=== PATIENT | female | born 1990 ===

== ENCOUNTER 2021-02-14 15:24 | Inpatient (IN) | payer OTHER ==
[~2021-02-14] VITALS: Ht 162.6 cm; Wt 55.8 kg
[2021-02-14] MEDS ORDERED: PROM-163 PO (17:16)
[2021-02-14] MEDS ORDERED: LOPE2 PO (17:16)
[2021-02-14] MEDS ORDERED: TRAZ-257 PO (17:16)
[2021-02-14] MEDS ORDERED: IBUP-2759 PO (17:16)
[2021-02-14] MEDS ORDERED: CLON0.1T2 PO (17:16)
[2021-02-14 17:48] LABS: BASOPHILS % (AUTO) 0.7 % (0.0-2.0); EOSINOPHILS % (AUTO) 0.1 % (1.0-6.0); HEMATOCRIT 40.6 % (36-46); HEMOGLOBIN 13.2 g/dL (12.0-16.0); LYMPHOCYTES # (AUTO) 1.1 K/uL (1.0-4.8); LYMPHOCYTES % (AUTO) 13.6 % (22.0-44.0); MEAN CORPUSCULAR HEMOGLOBIN 29.8 pg (26.0-34.0); MEAN CORPUSCULAR HGB CONC 32.5 G/dL (31.0-37.0); MEAN CORPUSCULAR VOLUME 92 fL (80-100); MONOCYTES # (AUTO) 0.3 K/uL (0.1-1.0); MONOCYTES % (AUTO) 3.9 % (2.0-9.0); NEUTROPHILS # (AUTO) 6.4 K/uL (1.8-7.7); NEUTROPHILS % (AUTO) 81.7 % (40.0-70.0); PLATELET COUNT (AUTO) 296 K/uL (150-450); RED BLOOD CELL COUNT(AUTO) 4.43 MIL/uL (4.00-5.20); RED CELL DISTRIBUTION WIDTH 14.3 % (11.5-14.5)
[2021-02-14 18:02] LABS: ANION GAP 10 mmol/L (8-16); CALCIUM, TOTAL 8.5 mg/dL (8.8-10.5); CARBON DIOXIDE 22 mmol/L (22-29); CHLORIDE 107 mmol/L (98-107); CREATININE 0.62 mg/dL (0.60-1.30); GLOMERULAR FILTR. RATE CALC > 60 mL/min (>60); GLUCOSE,RANDOM 92 mg/dL (70-110); POTASSIUM 3.6 mmol/L (3.5-5.1); SODIUM SERUM 139 mmol/L (136-145); UREA NITROGEN, BLOOD 11 mg/dL (7-18)
[2021-02-14 18:13] LABS: ALANINE AMINOTRANSFERASE 18 U/L (12-78); ALBUMIN 3.2 g/dL (3.4-5.0); ALKALINE PHOSPHATASE 61 U/L (46-116); ASPARTATE AMINOTRANSFERASE 14 U/L (15-37); BILIRUBIN,TOTAL 0.5 mg/dL (0.1-1.0); HCG,QUANTITATIVE < 1 mIU/mL (0-6); TOTAL PROTEIN, SERUM 6.9 g/dL (6.4-8.2)
[2021-02-14 18:48] LABS: SALICYLATE 3.8 mg/dL (2.8-20.0)
[2021-02-14 18:52] LABS: COVID AG,FIA SOURCE NASOPHARYNGEAL
[2021-02-14] MEDS ORDERED: ONDANSETRON HCL 4 MG/2 ML VIAL IVP PRN (20:00)
[2021-02-14] MEDS ORDERED: ACETAMINOPHEN 325 MG TABLET PO PRN (20:00)
[2021-02-14] MEDS ORDERED: LORazepam 2 MG TABLET PO PRN (20:00)
[2021-02-14 20:47] LABS: ACETAMINOPHEN < 2 mcg/mL (10-30)
[2021-02-14] MEDS: 1: MAGNESIUM SULFATE 2 GM, MVI, ADULT NO.1 WITH VIT K 10 ML, THIAMINE 100 MG, FOLIC ACID IV SCH ×5 (21:24)
[2021-02-14 21:30] VITALS: BP 116/83
[2021-02-14] MEDS: HEPARIN SODIUM,PORCINE 5,000 UNITS/ML VIAL SQ SCH (23:41)
[2021-02-15 04:00] VITALS: BP 136/70
[2021-02-15 04:22] LABS: AMPHET/METH SCREEN,URINE POSITIVE (NEGATIVE); BARBITURATE SCREEN, URINE NEGATIVE (NEGATIVE); BENZODIAZEPINES SCREEN,URINE NEGATIVE (NEGATIVE); CANNABINOID SCREEN,URINE NEGATIVE (NEGATIVE); COCAINE SCREEN,URINE NEGATIVE (NEGATIVE); METHADONE SCREEN, URINE NEGATIVE (NEGATIVE); OPIATE SCREEN,URINE NEGATIVE (NEGATIVE)
[2021-02-15 04:35] LABS: PHENCYCLIDINE SCREEN,URINE NEGATIVE (NEGATIVE)
[2021-02-15] MEDS: 1: MAGNESIUM SULFATE 2 GM, MVI, ADULT NO.1 WITH VIT K 10 ML, THIAMINE 100 MG, FOLIC ACID IV SCH ×5 (06:01)
[2021-02-15] MEDS ORDERED: LORazepam 2 MG TABLET PO PRN (07:00)
[2021-02-15 07:56] VITALS: BP 114/78
[2021-02-15] MEDS: HEPARIN SODIUM,PORCINE 5,000 UNITS/ML VIAL SQ SCH (08:44)
[2021-02-15] MEDS ORDERED: LORazepam 2 MG TABLET PO SCH (09:00)
[2021-02-15 11:25] VITALS: BP 116/65
[2021-02-15] MEDS: LORazepam 1 MG TABLET PO PRN ×2 (14:33→20:36)
[2021-02-15] MEDS ORDERED: TraZODone HCL 50 MG TABLET PO PRN (14:45)
[2021-02-15 15:47] VITALS: BP 128/76
[2021-02-15 20:05] VITALS: BP 125/71
[2021-02-15] MEDS ORDERED: PARoxetine HCL 10 MG TABLET PO SCH (21:00)
[2021-02-16] MEDS: LORazepam 1 MG TABLET PO PRN (03:27)
[2021-02-16 04:45] VITALS: BP 123/79
[2021-02-16 08:00] VITALS: BP 136/89
[2021-02-16 08:12] VITALS: BP 136/89
[2021-02-16] MEDS ORDERED: MULTIVITAMINS WITH MINERALS, THERAPEUTIC TABLET PO SCH (09:00)
[2021-02-16 15:43] VITALS: BP 127/77
[2021-02-16 20:25] VITALS: BP 108/57
[2021-02-17] MEDS ORDERED: LORazepam 1 MG TABLET PO PRN (07:00)
[2021-02-17] MEDS ORDERED: LORazepam 1 MG TABLET PO SCH (09:00)
[2021-02-18] MEDS ORDERED: LORazepam 1 MG TABLET PO PRN (07:00)
== END 2021-02-16 22:20 | DRG 897 ==
LOC: EMS 15:28 → 6S 20:00
PROVIDERS: ADMIT Internal Medicine; ATTEND Internal Medicine
DX: F10.239 Alcohol dependence with withdrawal, unspecified (principal); F19.239 Other psychoactive substance dependence with withdrawal, unspecified; F17.210 Nicotine dependence, cigarettes, uncomplicated; Z20.822 Contact with and (suspected) exposure to COVID-19; Z02.89 Encounter for other administrative examinations; Z79.899 Other long term (current) drug therapy
CPT/HCPCS: 80053; 83735; 84702; 85025; 93005; 99285; G0480; G0481; J1644; J3411; J3475; J3490; J7030